=== PATIENT | male | born 1965 | race Caucasian/White ===

== ENCOUNTER 2017-02-06 09:39 | Emergency (ER) | payer OTHER ==
--- NOTE | 2017-02-06 11:06 | DIAGNOSTIC IMAGING REPORT ---
PROCEDURE: CT HEAD WITHOUT CONTRAST INDICATION: Syncope with head trauma, initial encounter TECHNIQUE: Noncontrast axial images with sagittal and coronal reformations. COMPARISON: None. FINDINGS: Sulci, ventricular system, and brain parenchyma are normal. No evidence of acute intracranial process. Mild bilateral maxillary and ethmoid sinus disease. Mastoids are clear. IMPRESSION: 1. No acute intracranial abnormality 2. Mild sinus disease 3. Findings discussed with Dr. Lang at 11:04 a.m., [facility]
--- NOTE | 2017-02-06 12:37 | ED CLINICAL REPORT ---
Clinical Report - Physicians/Mid Levels [facility] [address] [place] [address] 02/06/2017 9:42 Patient: MIKE CARLOS Time Seen: 10:25 Feb 06 2017. Arrived- By private vehicle. Historian- patient. CPT: ER phys charges level 4 plus (#[id number]). EKG interpretation (#[id number]). HISTORY OF PRESENT ILLNESS Chief Complaint: SINGLE SYNCOPAL EPISODE and Past 2 hours after taking his new medications. The patient has recovered. This occurred last night This started last night. ( got up last night, felt 'funny" started to go back to bed and "passed out" hit the floor, has pain all down right side). (Just started inderal 1 month ago which he said did not help his anxiety. Doctor then started Seroquel at 50 mg a day to start. He started this 4 days ago on Monday. This does seem to make him groggy. He also been recently started on lithium. He was due to increase his dose of Seroquel to 150 mg tonight.). Event was not witnessed. (Found on kitchen floor by family members. Not clear if he passed out,). At time of event, he was standing. The patient had preceding symptoms of light-headedness and warmth. The patient felt faint, lost consciousness and collapsed. Had a single episode. Currently he feels normal. Similar symptoms previously: None. Recent medical care: Not recently seen/assessed. REVIEW OF SYSTEMS No headache, chest pain, palpitations, abdominal pain or vomiting. No fever, sore throat, difficulty breathing, skin rash or enlarged lymph nodes. No cough. He has had dizziness and weakness. right neck pain. All systems otherwise negative, except as recorded above. PAST HISTORY ( Anxiety Reaction.). Additional Surgeries: no known surgeries. Medications: [place] Oral 300 mg, bid. SEROquel Oral (Tablet 50 mg) 1 tablet, daily. Propranolol HCl ER Oral 20 mg, bid. Allergies: No Known Drug Allergy. SOCIAL HISTORY Former smoker. History of drug use: marijuana. No alcohol use. ADDITIONAL NOTES The nursing notes have been reviewed. PHYSICAL EXAM Vital Signs: 02/06/2017 09:51 BP: 129/85. HR: 63. RR: 18. O2 saturation: 98%. Temp: 97.5 F. Pain level now: 04/03. Appearance: Alert. No acute distress. Eyes: Pupils equal, round and reactive to light. No nystagmus. Extraocular movements normal. ENT: Moist mucous membranes. Pharynx normal. (abrasion right forehead.,). Neck: (soft tissue tenderness right neck. No vertebral tenderness.). CVS: Normal heart rate and rhythm. Heart sounds normal. Pulses normal. Respiratory: No respiratory distress. Breath sounds normal. Abdomen: Soft and nontender. Skin: Skin warm. Normal skin color. No rash. Extremities: Extremities exhibit normal ROM. No lower extremity edema. Neuro: Alert. Oriented X 3. Mood/affect normal. Speech normal. Cranial nerves normal (as tested). No cerebellar findings. No motor deficit. No sensory deficit. Reflexes normal. LABS, X-RAYS, AND EKG EKG: Rhythm not normal sinus. Normal P waves. Normal DOMINGA. Normal QRS complex. Normal axis. Non-specific ST segment / T wave abnormalities. Prior EKG unavailable. The study has been interpreted contemporaneously. The study has been independently viewed by me. The EKG appears to be a good tracing. CT Head: Normal study. (left sinus fluid.). Head CT performed without contrast. The study was independently viewed by me, interpreted by the radiologist and discussed with the radiologist. Laboratory Tests: CBC w Diff: (JAMI: 02/06/2017 10:10) ( MsgRcvd 02/06/2017 10:52) Final results Test Result Flag Units (Reference) WHITE BLOOD COUNT 10.0 K/uL (4.5-11.5) RED BLOOD COUNT 5.64 M/uL (4.50-5.90) HEMOGLOBIN 16.6 gm/dL (13.5-17.5) HEMATOCRIT 49.9 % (41.0-53.0) MEAN CELL VOLUME 89 fL (80-100) MEAN CORPUSCULAR HGB 30 pg (26-34) MEAN CORPUSCULAR HGB CONC 33 g/dL (31-37) RED CELL DISTRIBUTION WIDTH 13.8 % (11.6-14.8) PLATELET COUNT 331 K/uL (150-400) NEUTROPHIL % 68.6 % (50-75) LYMPH % 20.3 L % (25-40) MONO % 8.7 % (3-14) EOSINOPHIL % 2.0 % (0-4) BASOPHIL % 0.4 % (0-2) [place] Level: (JAMI: 02/06/2017 10:10) ( NygRcvd 02/06/2017 11:03) Final results Test Result Flag Units (Reference) LITHIUM 0.2 L mmol/L (0.5-1.5) CHEM 13 PANEL: (JAMI: 02/06/2017 10:10) ( [facility] 02/06[facility] 11:10) Final results Test Result Flag Units (Reference) GLUCOSE 113 H mg/dL (70-110) BUN 21 H mg/dL (7-18) CREATININE 0.9 mg/dL (0.6-1.3) Estimated GFR >60 mL/min Estimated GFR- >60 mL/min Note: Persistent reduction over 3 months in eGFR<60 mL/min/1.73 m2 defines CKD. Patients with eGFR values>=60 mL/min/1.73 m2 may also have CKD if evidence ofpersistent proteinuria. Additional information may be foundat www.kidney.org. SODIUM 142 mmol/L (136-145) POTASSIUM 4.4 mmol/L (3.5-5.1) CHLORIDE 107 mmol/L (98-107) CARBON DIOXIDE 25 mmol/L (21-32) CALCIUM 8.7 mg/dL (8.5-10.1) TOTAL PROTEIN 7.2 g/dL (6.4-8.2) ALBUMIN 3.7 g/dL (3.3-5.0) BILIRUBIN, TOTAL 0.3 mg/dL (0.0-1.0) ALKALINE PHOSPHATASE 64 U/L (46-116) AST (SGOT) 15 U/L (15-37) ALT (SGPT) 34 U/L (12-78) CPK 67 U/L (24-260) MAGNESIUM 1.9 mg/dL (1.8-2.4) TROPONIN I <0.05 ng/mL (0.00-1.5) TROPONIN REFERENCE RANGE:<0.1 NEGATIVE0.1-1.5 INDETERMINANT>1.5 POSITIVE THYROID STIMULATING HORMONE 2.907 uIU/mL (0.34-3.74) . PROGRESS AND PROCEDURES Course of Care: Patient hit his head after a fall last night. Some clear how long he was unconscious. Patient found himself on the floor later and realized he had lost consciousness. We'll do a CT to rule out intracranial injury. Patient/family counseled. Disposition: Discharged. Condition: stable and improved. CLINICAL IMPRESSION Postural syncope .12 lead EKG performed. Muscle strain of the neck and right trapezius at the shoulder. Single contusion with abrasion to the head. Adverse effects to new medications: Seroquel and inderal. INSTRUCTIONS No strenuous activity. Rest. Do not work today, for one day until better. Drink plenty of fluids. Warnings: Further evaluation is necessary. GENERAL WARNINGS: Return or contact your physician immediately if your condition worsens or changes unexpectedly, if not improving as expected, or if other problems arise. Your Current Medications: STOP TAKING THE FOLLOWING MEDICATIONS: Propranolol HCl ER Oral : 20 mg bid. SEROquel Oral : Tablet 50 mg, 1 tablet daily. CONTINUE TAKING THE FOLLOWING MEDICATIONS: [place] Oral : 300 mg bid. Follow-up: Follow up with your doctor in three days. Call for an appointment. Understanding of the discharge instructions verbalized by patient. Discharge instructions reviewed with and understanding was verbalized by spouse. (Electronically signed by Clint Lang MD 02/07/2017 20:51)
--- NOTE | 2017-02-06 12:37 | ED ORDER SUMMARY ---
..... Patient: MIKE CARLOS OrderSheet [facility] VisitID: [id number] [address] [place] [address] 51y, M Registration Date/Time: 02/06/2017 ORDER SHEET Weight: 71.2 kg (stated) Allergies: No Known Drug Allergy GENERAL ORDERS: CT Head wo Cont Urgent (10:37 02/06/2017 Keyur BHATT) (Ack 10:51 LNations ER Tech1) (11:34 DDean R.N.) - (orthostatics BP/P before IV fluids.) (10:37 02/06/2017 Keyur BHATT) (Ack 10:51 LNations ER Tech1) (11:34 DDean R.N.) Cardiac Panel Stat (10:38 02/06/2017 Keyur BHATT) (10:49 Edi R.N.) TSH Urgent (10:02/06/2017 Keyur BHATT) (10:49 Edi R.N.) [place] Level Urgent (10:38 02/06/2017 Keyur BHATT) (10:49 Edi R.N.) EKG - ER Stat (12:37 02/06/2017 Keyur BHATT) (12:40 LNations ER Tech1) MEDICATION ORDERS: IV FLUIDS: IV NS : initial bolus 500 mL (1000 mL/hr), then 500 mL/hr for 2h (NOW); Routine (10:37 02/06/2017 Keyur BHATT) (Ack 10:40 DDean R.N.) (11:37 DDean R.N.) ORDER SHEET NOTES: [Electronically signed by Ghazala Mendiola R.N. (13:29 02/06/2017)] [Electronically signed by Clint Lang MD (20:51 02/07/2017)] [Electronically locked/signed by Ghazala Mendiola R.N. (13:02/06/2017)]
--- NOTE | 2017-02-06 12:37 | ED CLINICAL REPORT ---
Clinical Report - Physicians/Mid Levels [facility] [address] [place] [address] 02/06/2017 9:42 Patient: MIKE CARLOS Time Seen: 10:25 Feb 06 2017. Arrived- By private vehicle. Historian- patient. CPT: ER phys charges level 4 plus (#[id number]). EKG interpretation (#[id number]). HISTORY OF PRESENT ILLNESS Chief Complaint: SINGLE SYNCOPAL EPISODE and Past 2 hours after taking his new medications. The patient has recovered. This occurred last night This started last night. ( got up last night, felt 'funny" started to go back to bed and "passed out" hit the floor, has pain all down right side). (Just started inderal 1 month ago which he said did not help his anxiety. Doctor then started Seroquel at 50 mg a day to start. He started this 4 days ago on Monday. This does seem to make him groggy. He also been recently started on lithium. He was due to increase his dose of Seroquel to 150 mg tonight.). Event was not witnessed. (Found on kitchen floor by family members. Not clear if he passed out,). At time of event, he was standing. The patient had preceding symptoms of light-headedness and warmth. The patient felt faint, lost consciousness and collapsed. Had a single episode. Currently he feels normal. Similar symptoms previously: None. Recent medical care: Not recently seen/assessed. REVIEW OF SYSTEMS No headache, chest pain, palpitations, abdominal pain or vomiting. No fever, sore throat, difficulty breathing, skin rash or enlarged lymph nodes. No cough. He has had dizziness and weakness. right neck pain. All systems otherwise negative, except as recorded above. PAST HISTORY ( Anxiety Reaction.). Additional Surgeries: no known surgeries. Medications: [place] Oral 300 mg, bid. SEROquel Oral (Tablet 50 mg) 1 tablet, daily. Propranolol HCl ER Oral 20 mg, bid. Allergies: No Known Drug Allergy. SOCIAL HISTORY Former smoker. History of drug use: marijuana. No alcohol use. ADDITIONAL NOTES The nursing notes have been reviewed. PHYSICAL EXAM Vital Signs: 02/06/2017 09:51 BP: 129/85. HR: 63. RR: 18. O2 saturation: 98%. Temp: 97.5 F. Pain level now: 04/03. Appearance: Alert. No acute distress. Eyes: Pupils equal, round and reactive to light. No nystagmus. Extraocular movements normal. ENT: Moist mucous membranes. Pharynx normal. (abrasion right forehead.,). Neck: (soft tissue tenderness right neck. No vertebral tenderness.). CVS: Normal heart rate and rhythm. Heart sounds normal. Pulses normal. Respiratory: No respiratory distress. Breath sounds normal. Abdomen: Soft and nontender. Skin: Skin warm. Normal skin color. No rash. Extremities: Extremities exhibit normal ROM. No lower extremity edema. Neuro: Alert. Oriented X 3. Mood/affect normal. Speech normal. Cranial nerves normal (as tested). No cerebellar findings. No motor deficit. No sensory deficit. Reflexes normal. LABS, X-RAYS, AND EKG EKG: Rhythm not normal sinus. Normal P waves. Normal [place]. Normal QRS complex. Normal axis. Non-specific ST segment / T wave abnormalities. Prior EKG unavailable. The study has been interpreted contemporaneously. The study has been independently viewed by me. The EKG appears to be a good tracing. CT Head: Normal study. (left sinus fluid.). Head CT performed without contrast. The study was independently viewed by me, interpreted by the radiologist and discussed with the radiologist. Laboratory Tests: CBC w Diff: (JAMI: 02/06/2017 10:10) ( MsgRcvd 02/06/2017 10:52) Final results Test Result Flag Units (Reference) WHITE BLOOD COUNT 10.0 K/uL (4.5-11.5) RED BLOOD COUNT 5.64 M/uL (4.50-5.90) HEMOGLOBIN 16.6 gm/dL (13.5-17.5) HEMATOCRIT 49.9 % (41.0-53.0) MEAN CELL VOLUME 89 fL (80-100) MEAN CORPUSCULAR HGB 30 pg (26-34) MEAN CORPUSCULAR HGB CONC 33 g/dL (31-37) RED CELL DISTRIBUTION WIDTH 13.8 % (11.6-14.8) PLATELET COUNT 331 K/uL (150-400) NEUTROPHIL % 68.6 % (50-75) LYMPH % 20.3 L % (25-40) MONO % 8.7 % (3-14) EOSINOPHIL % 2.0 % (0-4) BASOPHIL % 0.4 % (0-2) [place] Level: (JAMI: 02/06/2017 10:10) ( MigRcvd 02/06/2017 11:03) Final results Test Result Flag Units (Reference) LITHIUM 0.2 L mmol/L (0.5-1.5) CHEM 13 PANEL: (JAMI: 02/06/2017 10:10) ( [facility] [place] [place] 02/06/2017 11:10) Final results Test Result Flag Units (Reference) GLUCOSE 113 H mg/dL (70-110) BUN 21 H mg/dL (7-18) CREATININE 0.9 mg/dL (0.6-1.3) Estimated GFR >60 mL/min Estimated GFR- >60 mL/min Note: Persistent reduction over 3 months in eGFR<60 mL/min/1.73 m2 defines CKD. Patients with eGFR values>=60 mL/min/1.73 m2 may also have CKD if evidence ofpersistent proteinuria. Additional information may be foundat www.kidney.org. SODIUM 142 mmol/L (136-145) POTASSIUM 4.4 mmol/L (3.5-5.1) CHLORIDE 107 mmol/L (98-107) CARBON DIOXIDE 25 mmol/L (21-32) CALCIUM 8.7 mg/dL (8.5-10.1) TOTAL PROTEIN 7.2 g/dL (6.4-8.2) ALBUMIN 3.7 g/dL (3.3-5.0) BILIRUBIN, TOTAL 0.3 mg/dL (0.0-1.0) ALKALINE PHOSPHATASE 64 U/L (46-116) AST (SGOT) 15 U/L (15-37) ALT (SGPT) 34 U/L (12-78) CPK 67 U/L (24-260) MAGNESIUM 1.9 mg/dL (1.8-2.4) TROPONIN I <0.05 ng/mL (0.00-1.5) TROPONIN REFERENCE RANGE:<0.1 NEGATIVE0.1-1.5 INDETERMINANT>1.5 POSITIVE THYROID STIMULATING HORMONE 2.907 uIU/mL (0.34-3.74) . PROGRESS AND PROCEDURES Course of Care: Patient hit his head after a fall last night. Some clear how long he was unconscious. Patient found himself on the floor later and realized he had lost consciousness. We'll do a CT to rule out intracranial injury. Patient/family counseled. Disposition: Discharged. Condition: stable and improved. CLINICAL IMPRESSION Postural syncope .12 lead EKG performed. Muscle strain of the neck and right trapezius at the shoulder. Single contusion with abrasion to the head. Adverse effects to new medications: Seroquel and inderal. INSTRUCTIONS No strenuous activity. Rest. Do not work today, for one day until better. Drink plenty of fluids. Warnings: Further evaluation is necessary. GENERAL WARNINGS: Return or contact your physician immediately if your condition worsens or changes unexpectedly, if not improving as expected, or if other problems arise. Your Current Medications: STOP TAKING THE FOLLOWING MEDICATIONS: Propranolol HCl ER Oral : 20 mg bid. SEROquel Oral : Tablet 50 mg, 1 tablet daily. CONTINUE TAKING THE FOLLOWING MEDICATIONS: [place] Oral : 300 mg bid. Follow-up: Follow up with your doctor in three days. Call for an appointment. Understanding of the discharge instructions verbalized by patient. Discharge instructions reviewed with and understanding was verbalized by spouse. (Electronically signed by Clint Lang MD 02/07/2017 20:51)
--- NOTE | 2017-02-06 12:37 | ED NURSING NOTES ---
Clinical Report - Nurses [facility] [address] [place] [address] 02/06/2017 9:42 Patient: MIKE CARLOS TRIAGE Triage time 09:52. Acuity: LEVEL 3. Chief Complaint: SYNCOPE. Alert. No acute distress. RJ COMA SCORE: Rj Coma Scale: 15- eyes open spontaneously (4); best verbal response- oriented x 4 (5); best motor response- obeys commands (6). --09:59 Mame De La Rosa R.N. 09:51 02/06/17. BP: 129/85. HR: 63. RR: 18. O2 saturation: 98%. Temp: 97.5 F (oral). Pain level now: 04/03. --09:59 Mame De La Rosa R.N. Weight: 71.2 kg stated. Height/Length: 70 inches Per Patient. BMI: 22.5. --09:58 Mame De La Rosa R.N. Medications Propranolol HCl ER Oral 20 mg, bid. --09:54 Mame De La Rosa R.N. SEROquel Oral (Tablet 50 mg) 1 tablet, daily. --09:55 Mame De La Rosa R.N. [place] Oral 300 mg, bid. --09:55 Mame De La Rosa R.N. Medication/allergy information source: the patient. --09:59 Mame De La Rosa R.N. Allergies No Known Drug Allergy. --09:56 Mame De La Rosa R.N. History Arrived by private vehicle. Historian: patient. Accompanied by family. Primary physician (Jenn - psychiatrist). This started last night. ( got up last night, felt 'funny" started to go back to bed and "passed out" hit the floor, has pain all down right side). SOCIAL HX: Former smoker. History of drug use: marijuana. No alcohol use. FALL RISK ASSESSMENT: Fall risk assessment completed. No fall risk identified. FUNCTIONAL ASSESSMENT: Functional assessment: no impairments noted. LEARNING NEEDS ASSESSMENT: The learning needs assessment revealed no barriers. --09:59 Mame De La Rosa R.N. PROBLEMS: Anxiety Reaction. --09:57 Mame De La Rosa R.N. ADDITIONAL SURGERIES: no known surgeries. Assessment GENERAL / NEURO / PSYCH: Alert. Oriented X 4. Appears in no acute distress. Patient appears calm and cooperative. RESPIRATORY: Respirations not labored. SKIN: Skin is warm and dry. --09:59 Mame De La Rosa R.N. Interventions ID band on patient. To treatment room. --09:59 Mame De La Rosa R.N. PHYSICAL ASSESSMENT 10:19 02/06/17. Ambulatory to room. Patient gowned. GENERAL / NEURO / PSYCH: The patient is awake and alert, is oriented and cooperative and appears anxious. He has good eye contact. Speech within normal limits. RESPIRATORY: Respirations not labored. CVS: Cardiac rhythm: sinus rhythm. SKIN: Skin is warm and dry. --10:19 Mame De La Rosa R.N. NURSING PROGRESS NOTES EKG time: (1010). EKG was ordered, performed by a tech and shown to the ED physician. --10:11 Renee Lujan ER Tech1 10:15 02/06/2017 Site #1 started via IV in the right antecubital space with an 20g angiocath, with aseptic technique and good blood return; two attempts. Blood drawn: rainbow set. Labeled in the presence of the patient and sent to the lab. Saline lock flushed with 10 mL saline. --10:20 Mame De La Rosa R.N. 10:19 02/06/17. Monitoring of patient in place. Patient gowned. Head of bed elevated. Call light placed in reach. Side rails up x 1. Bed placed in lowest position. Brakes of bed on. --10:19 Mame De La Rosa R.N. 10:43 02/06/17. Care transferred and report received. --10:43 Ghazala Mendiola R.N. late entry -10:40. Patient transported to CT by stretcher with tech. --10:49 Ghazala Mendiola R.N. 10:55. Patient returned from CT by stretcher with tech. --11:30 Ghazala Mendiola R.N. 1115 Orthostatics: BP 115/76 flat, 118/78 sitting, 117/83 standing ; HR flat 66; sitting 71, standing 72; O2sat 98% throughout. --11:34 Ghazala Mendiola R.N. 10:55 02/06/2017 Started bag #1 1000 mL IV Fluids IV NS (Saline); bolus of 500 mL over 30 minute(s) then at 500 mL/hr over 2 hour(s) via site #1 via IV pump. --11:37 Ghazala Mendiola R.N. 11:51 02/06/2017 IV Fluids IV NS via IV site #1 Rate Changed: bag #1 decreased to 500 mL/hr via IV pump. IV patency established. IV site checked: no pain, redness, or swelling. IV flushed thoroughly. --11:51 Ghazala Mendiola R.N. 11:52 02/06/17. BP: 129/93. HR: 72. RR: 18. O2 saturation: 97%. Temp: deferred. Pain level now: 10. Additional comments: shoulder. --11:54 Ghazala Mendiola R.N. late entry -11:25 wound care of forehead abrasion. washed with hibicleans, polysporin oint and bandaid placed. --11:57 Ghazala Mendiola R.N. 12:15 02/06/17. BP: 126/83. HR: 71. RR: 16. O2 saturation: 97% on room air. Temp: deferred. Pain level now: 03/04. Additional comments: watching t.v. family at bedside, waiting for dispo. --12:16 Ghazala Mendiola R.N. 12:30 02/06/2017 Site #1 removed upon discharge. Bandaid applied. --12:51 Ghazala Mendiola R.N. <<STRICKEN ENTRY-- 12:30 02/06/2017 IV Fluids IV NS Discontinued: bag #2 STOPPED upon discharge. Total amount infused: 600 mL. IV patency established. IV site checked: no pain, redness, or swelling. IV flushed thoroughly. --12:52 Ghazala Mendiola R.N. --END STRIKE>> Other. --13:26 Ghazala Mendiola R.N. 12:30 02/06/2017 IV Fluids IV NS Discontinued: bag #1 STOPPED upon discharge. Total amount infused: 900 mL. IV patency established. IV site checked: no pain, redness, or swelling. IV flushed thoroughly. --13:27 Ghazala Mendiola R.N. 12:25. ( Pt ambulated to bathroom, steady on feet, states he had slight dizziness when her first sat up). --13:28 Ghazala Mendiola R.N. DISPOSITION / DISCHARGE 12:40. Condition at departure: unchanged and stable. No learning barriers present. Discharge instructions provided and reviewed with the patient and spouse. Reviewed medication(s) (tylenol or motrin for pain). Treatments reviewed (ice). Patient and spouse verbalized understanding. Written instructions provided in Sami. The patient was discharged home and accompanied by spouse. He left the Emergency Department ambulatory and via private vehicle. Spouse driving. --12:50 Ghazala Mendiola R.N. 12:40 02/06/17. BP: 111/82. HR: 96. RR: 18. O2 saturation: 98%. Temp: deferred. Pain level now: 03/04. --12:50 Ghazala Mendiola R.N. Locked/Released at 02/06/2017 13:29 by Ghazala Mendiola R.N.
--- NOTE | 2017-02-06 12:37 | ED ORDER SUMMARY ---
..... Patient: MIKE CARLOS OrderSheet [facility] VisitID: [id number] [address] [place] [address] 51y, M Registration Date/Time: 02/06/2017 ORDER SHEET Weight: 71.2 kg (stated) Allergies: No Known Drug Allergy GENERAL ORDERS: CT Head wo Cont Urgent (10:37 02/06/2017 Keyur BHATT) (Ack 10:51 LNations ER Tech1) (11:34 DDean R.N.) - (orthostatics BP/P before IV fluids.) (10:37 02/06/2017 Keyur BHATT) (Ack 10:51 LNations ER Tech1) (11:34 DDean R.N.) Cardiac Panel Stat (10:38 02/06/2017 Keyur BHATT) (10:49 Edi R.N.) TSH Urgent (10:02/06/2017 Keyur BHATT) (10:49 Edi R.N.) [place] Level Urgent (10:38 02/06/2017 Keyur BHATT) (10:49 Edi R.N.) EKG - ER Stat (12:37 02/06/2017 Keyur BHATT) (12:40 LNations ER Tech1) MEDICATION ORDERS: IV FLUIDS: IV NS : initial bolus 500 mL (1000 mL/hr), then 500 mL/hr for 2h (NOW); Routine (10:37 02/06/2017 Keyur BHATT) (Ack 10:40 DDean R.N.) (11:37 DDean R.N.) ORDER SHEET NOTES: [Electronically signed by Ghazala Mendiola R.N. (13:29 02/06/2017)] [Electronically signed by Clint Lang MD (20:51 02/07/2017)] [Electronically locked/signed by Ghazala Mendiola R.N. (13:02/06/2017)]
--- NOTE | 2017-02-07 20:52 | ED MAR SUMMARY ---
..... Medication Administration Record [facility] [address] [place] [address] Patient: MIKE CARLOS Visit ID: [id number] 51y, M Weight: 71.2 kg Height/Length: 70 in BMI: 22.5 ALLERGIES: No Known Drug Allergy Start 10:55 02/06/2017 Ghazala Mendiola R.N., Stop 12:30 02/06/2017 Ghazala Mendiola R.N. Medication Administered: IV NS (SALINE), Dose: IV Fluids over 2 hour(s), Rate: 500 mL/hr, Bolus: 500 mL over 30 minute(s), Dispensed: 1000 mL bag, Site: #1 right AC. Medication Ordered: IV NS : initial bolus 500 mL (1000 mL/hr), then 500 mL/hr for 2h (NOW); Routine.
--- NOTE | 2017-02-07 20:52 | ED MED RECONCILIATION SUMMARY ---
Patient: GHAZALJASMYNE CUENCATER Frederic Medication Reconciliation Report [facility] VisitID: [id number] [address] [place] [address] 51y, M Registration Date/Time: 02/06/2017 Weight: 71.2 kg Height/Length: 70 in. BMI: 22.5 ALLERGIES: No Known Drug Allergy The patient's Home Medications are listed below: STOP TAKING THE FOLLOWING MEDICATIONS: Propranolol HCl ER Oral 20 mg, bid SEROquel Oral (50 mg) 1 tablet, daily CONTINUE TAKING THE FOLLOWING MEDICATIONS: [place] Oral 300 mg, bid The source(s) of the original Home Medication information: patient The following Medications were given to the patient in the Emergency Department: IV NS IV Fluids bolus 500 mL over 30 minute(s), then 500 mL/hr, administered: 02/06/2017 10:55:00 AM The following Medications were prescribed to the patient: None.
--- NOTE | 2017-02-07 20:52 | ED DISCHARGE INSTRUCTIONS ---
Patient: MIKE CARLOS General Instructions [facility] VisitID: [id number] [address] [place] [address] 51y, M Registration Date/Time: 02/06/2017 Postural syncope .12 lead EKG performed. Muscle strain of the neck and right trapezius at the shoulder. Single contusion with abrasion to the head. Adverse effects to new medications: Seroquel and inderal. INSTRUCTIONS No strenuous activity. Rest. Do not work today, for one day until better. Drink plenty of fluids. Warnings: Further evaluation is necessary. GENERAL WARNINGS: Return or contact your physician immediately if your condition worsens or changes unexpectedly, if not improving as expected, or if other problems arise. Your Current Medications: STOP TAKING THE FOLLOWING MEDICATIONS: Propranolol HCl ER Oral : 20 mg bid. SEROquel Oral : Tablet 50 mg, 1 tablet daily. CONTINUE TAKING THE FOLLOWING MEDICATIONS: Jenera Oral : 300 mg bid. Follow-up: Follow up with your doctor in three days. Call for an appointment. Understanding of the discharge instructions verbalized by patient. Discharge instructions reviewed with and understanding was verbalized by spouse. ADDITIONAL INFORMATION Muscle Strain,Extremity A MUSCLE STRAIN is a stretching and tearing of muscle fibers. This causes pain, especially with motion of that muscle. There may also be some swelling and bruising. Home Care: 1) Keep the injured area raised to reduce pain and swelling. This is especially important during the first 48 hours. 2) Make an ice pack (ice cubes in a plastic bag, wrapped in a towel) and apply for 20 minutes every 1-2 hours the first day. You should continue with ice packs 3-4 times a day for the second and third days. Unless otherwise instructed, on the fourth day you may begin hot soaks or hot packs (small towel soaked in hot water) 3-4 times a day while you gently exercise the involved area. 3) You may use acetaminophen (Tylenol) or ibuprofen (Motrin, Advil) to control pain, unless another medicine was prescribed. [ NOTE : If you have chronic liver or kidney disease or ever had a stomach ulcer or GI bleeding, talk with your doctor before using these medicines.] 4) For LEG STRAINS: If CRUTCHES have been recommended, do not bear full weight on the injured leg until you can do so without pain. You may return to sports when you are able to hop and run on the injured leg without pain. Follow Up with your doctor or this facility if you are not improving within the next five days. Get Prompt Medical Attention if any of the following occur: -- Fingers or toes become swollen, cold, blue, numb or tingly -- Pain or swelling increases You have been given the following additional information: Muscle Strain, Extremity No strenuous activity. Rest. Do not work today, for one day until better. (Electronically signed by Clint Lang MD 02/07/2017 20:51)
--- NOTE | 2017-02-07 20:52 | ED MED RECONCILIATION SUMMARY ---
Patient: GHAZALJASMYNE CUENCATER Frederic Medication Reconciliation Report [facility] VisitID: [id number] [address] [place] [address] 51y, M Registration Date/Time: 02/06/2017 Weight: 71.2 kg Height/Length: 70 in. BMI: 22.5 ALLERGIES: No Known Drug Allergy The patient's Home Medications are listed below: STOP TAKING THE FOLLOWING MEDICATIONS: Propranolol HCl ER Oral 20 mg, bid SEROquel Oral (50 mg) 1 tablet, daily CONTINUE TAKING THE FOLLOWING MEDICATIONS: [place] Oral 300 mg, bid The source(s) of the original Home Medication information: patient The following Medications were given to the patient in the Emergency Department: IV NS IV Fluids bolus 500 mL over 30 minute(s), then 500 mL/hr, administered: 02/06/2017 10:55:00 AM The following Medications were prescribed to the patient: None.
--- NOTE | 2017-02-07 20:52 | ED MAR SUMMARY ---
..... Medication Administration Record [facility] [address] [place] [address] Patient: MIKE CARLOS Visit ID: [id number] 51y, M Weight: 71.2 kg Height/Length: 70 in BMI: 22.5 ALLERGIES: No Known Drug Allergy Start 10:55 02/06/2017 Ghazala Mendiola R.N., Stop 12:30 02/06/2017 Ghazala Mendiola R.N. Medication Administered: IV NS (SALINE), Dose: IV Fluids over 2 hour(s), Rate: 500 mL/hr, Bolus: 500 mL over 30 minute(s), Dispensed: 1000 mL bag, Site: #1 right AC. Medication Ordered: IV NS : initial bolus 500 mL (1000 mL/hr), then 500 mL/hr for 2h (NOW); Routine.
== END 2017-02-06 12:40 | disposition home or self-care (01) ==
LOC: ED SRH 09:39
DX: R55 Syncope and collapse (principal); T50.995A Adverse effect of other drugs, medicaments and biological substances, initial encounter; S16.1XXA Strain of muscle, fascia and tendon at neck level, initial encounter; S46.811A Strain of other muscles, fascia and tendons at shoulder and upper arm level, right arm, initial encounter; S00.93XA Contusion of unspecified part of head, initial encounter; W19.XXXA Unspecified fall, initial encounter; Y93.89 Activity, other specified; Y92.9 Unspecified place or not applicable; Y99.9 Unspecified external cause status; Z79.899 Other long term (current) drug therapy
CPT/HCPCS: 90100; 90616; 91589; 92610; 92720; 93140; 95059